=== PATIENT | female | born 1945 | race Caucasian/White ===

== ENCOUNTER → 2016-12-17 12:58 | Outpatient (CLI) | payer MEDICARE, BC | END | disposition home or self-care (01) | LOC: D.LAB 12:58 → D.MRI 13:30 | DX: G50.0 Trigeminal neuralgia (principal) ==

== ENCOUNTER 2018-06-06 19:00 | Outpatient (CLI) | payer MEDICARE, BC | END 2018-06-06 23:59 | disposition home or self-care (01) | LOC: D.MAMMO 19:00 | DX: Z12.31 Encounter for screening mammogram for malignant neoplasm of breast (principal) ==